=== PATIENT | male | born 1985 | race Caucasian/White ===

== ENCOUNTER 2018-02-12 23:24 | Emergency (ER) | payer BC ==
[2018-02-13] MEDS: IBUPROFEN 600 MG TAB PO (03:04)
[2018-02-13] MEDS: DIPHTH/TET/ACEL PERTUSS (ADULT) 0.5 ML VIAL IM (03:06)
[2018-02-13] MEDS: NEOMYC/POLYMYX/BACIT 30 GM OINT TOP (04:38)
== END 2018-02-13 04:40 | disposition home or self-care (01) ==
LOC: FTE 23:24
DX: S41.151A Open bite of right upper arm, initial encounter (principal); W54.0XXA Bitten by dog, initial encounter; Y92.9 Unspecified place or not applicable; Z23 Encounter for immunization
CPT/HCPCS: 12001; 90471; 90715; 99283-25